=== PATIENT | male | born 1970 | race Caucasian/White ===

== ENCOUNTER 2020-08-24 17:25 | Emergency (ER) | payer OTHER ==
[2020-08-24 19:18] LABS: BASOPHIL 0.6 % (0-2); EOSINOPHIL 1.8 % (0-5); HCT 41.5 % (42.0-52.0); HGB 14.9 g/dl (13.2-18.0); LYMPHOCYTE 38.3 % (15-48); MCH 31.5 pg (25.0-31.0); MCHC 35.9 g/dL (32.0-36.0); MCV 87.7 fL (78.0-100.0); MONOCYTE 8.9 % (0-12); MPV 10.8 fL (6.0-9.5); NEUTROPHIL 50.1 % (41-80); NRBC 0; PLT 199 K/uL (150-400); RBC 4.73 M/uL (4.70-6.00); RDW 12.4 % (11.5-14.0); WBC 9.8 K/uL (4.0-10.5)
[2020-08-24 19:25] LABS: INR 1.01 (0.9-1.2); PROTHROMBIN TIME 12.6 SECONDS (11.4-13.6)
[2020-08-24 19:35] LABS: ALBUMIN 3.7 g/dL (3.4-5.0); BILIRUBIN - TOTAL 0.3 mg/dL (0.2-1.0); BUN/CREAT RATIO (CALC) 12.5 RATIO; CREATININE 0.8 mg/dL (0.67-1.17); GLOBULIN (CALCULATION) 3.9 g/dL; POTASSIUM 3.8 mmol/L (3.5-5.1); TOTAL PROTEIN 7.6 g/dL (6.4-8.2)
== END 2020-08-24 21:45 | disposition home or self-care (01) ==
LOC: FER 17:25
PROVIDERS: Physician Assistant
DX: R07.9 Chest pain, unspecified (principal); R51.9 Headache, unspecified; R00.2 Palpitations; R20.0 Anesthesia of skin; F17.290 Nicotine dependence, other tobacco product, uncomplicated; Z86.69 Personal history of other diseases of the nervous system and sense organs; Z91.038 Other insect allergy status; Z79.899 Other long term (current) drug therapy
CPT/HCPCS: 36415; 70450; 71045; 80053; 84484; 85025; 85610; 93005